=== PATIENT | female | born 1935 | race Caucasian/White ===

== ENCOUNTER → 2021-12-07 17:49 | Outpatient (BNVA) | payer MEDICARE, MEDICAID, SELFPAY | PROVIDERS: Visit Provider Emergency Medicine | DX: Z20.822 Contact with and (suspected) exposure to COVID-19 (principal); J06.9 Acute upper respiratory infection, unspecified; J40 Bronchitis, not specified as acute or chronic | CPT/HCPCS: 87400; 87635; 87880 ==